=== PATIENT | male | born 1985 | race Caucasian/White ===

== ENCOUNTER 2022-05-13 18:49 | Emergency (ER) | payer OTHER, SELFPAY ==
--- NOTE | ~2022-05-13 | XR_ITS ---
EXAMINATION: XR ANKLE, RIGHT CLINICAL INFORMATION: Right ankle pain COMPARISON: None TECHNIQUE: AP, lateral, and mortise views of the right ankle. FINDINGS: The bones are normal. No fracture. Alignment is anatomic. Joint spaces are maintained. No joint effusion. Soft tissue swelling overlying the lateral malleolus. XR/XR ankle RT min 3V IMPRESSION: Soft tissue swelling overlying the lateral malleolus.
--- NOTE | 2022-05-13 18:54 | ED.EXTPRO ---
HPI - Extremity Problem General Chief complaint: Extremity Injury, Lower Stated complaint: R ANKLE PAIN S/P ROLLING W/FALL WHILE WORKING Time Seen by Provider: 05/13/22 18:59 Source: patient and EMS Mode of arrival: EMS Limitations: no limitations History of Present Illness HPI Narrative: This is a 37-year-old male no significant medical history presenting with excruciating 10/10 right ankle pain, patient tells me he sustained a work related injury he works for [employer] was stepping out of the [employer] truck and rolled his ankle out words, immediately started experiencing severe 10/10 pain worse with movement and weight-bearing better at rest. Patient tells me this is the worst pain he has ever had. Ambulance gave him 100 mcg of fentanyl just prior to arrival. Patient denies numbness or tingling. No previous issues with right ankle. No history of osteoporosis. He did not fall, there was no head strike, no other injuries reported. Related Data Allergies Allergy/AdvReac Type Severity Reaction Status Date / Time SEAFOOD Allergy Unknown SWELLING/DIFFICULTY Uncoded 05/13/22 19:17 BREATHING Review of Systems Review of Systems: Constitutional : No Weight loss, No Fever, No Chills, No Fatigue, No Malaise ENT/Mouth : No sore throat, No Rhinorrhea Eyes: No Eye Pain, No Swelling, No Redness Cardiovascular : No Chest Pain, No SOB, No Dyspnea on Exertion, No Orthopnea, No Edema, No Palpitations Respiratory : No Cough, No Sputum, No Wheezing Gastrointestinal : No Nausea, No Vomiting, No Diarrhea, No Constipation, No abdominal Pain, No Hematochezia, No Melena Genitourinary : No Dysuria, No Urinary Frequency, No Hematuria, Musculoskeletal : + joint pain, No Myalgias, + Joint Swelling Skin : No Skin Lesions, No rash Neuro : No Weakness, No Numbness, No Dizziness, No Headache Psych : No Anxiety/Panic, No Depression All other systems reviewed and are negative Yes all other systems are reviewed and are negative [facility], [facility] Past Medical History Attestation statement: The following information was validated with the patient. Source: old records reviewed and nursing notes reviewed Physical Exam Vital Signs: Vital Signs: Last Vital Signs Temp 98 F 05/13/22 19:18 Pulse 93 05/13/22 19:18 Resp 20 05/13/22 19:18 BP 138/78 05/13/22 19:18 Pulse Ox 100 05/13/22 19:18 O2 Del Method 05/13/22 19:18 BMI result Body Mass Index 27.0 vss Appearance: Alert.? Oriented X3.? No acute distress.? Head: Normocephalic, atraumatic, no step-offs or deformities Eyes: Pupils equal, round and reactive to light.? ENT: Pharynx normal.? Neck: Normal inspection.? Neck supple.? CVS: Normal heart rate and rhythm.? Pulses normal.? Respiratory: No respiratory distress.? Breath sounds normal.? Abdomen: Soft and nontender.? Skin: Skin warm and dry.? Normal skin color.? Normal skin turgor.? Extremities: No lower extremity edema.? No calf ttp. 5/5 strength to bilateral upper and lower extremities + limited range of motion to right ankle secondary to pain. Normal left ankle. 2+ dorsalis pedis, anterior tibialis, posterior tibialis pulses equal bilateral. Formal sensation to lower extremities. Capillary refill less than 2 seconds. To bilateral lower extremity digits. There is significant swelling noted to the lateral aspect of right ankle. Back: No midline tenderness, no C-spine tenderness, full range of motion, no CVA tenderness bilaterally Neuro: Oriented X 3.? No motor deficit.? No sensory deficit. CN 2-12 intact Course Reevaluation(s) Reevaluation #1: Soft tissue swelling overlying the R. lateral malleolus , no fx or dislocation. Patient will be placed in an air cast and given crutches. Will have him follow up with orthopedics. Educated patient on diagnosis and treatment plan, answered all question, patient verbalizes understanding. At this time patient will be discharged home, advised to return with new or worsening symptoms. Educated on worrisome signs and symptoms and when to return. At this time I feel comfortable discharge home. Time: 19:29 Medical Decision Making Medical Decision Making [facility] Narrative: 1855 37-year-old male presents with work related injury complaining of right ankle pain status post rolling it while stepping out of the [employer] vehicle. Physical exam significant for No lower extremity edema.? No calf ttp. 5/5 strength to bilateral upper and lower extremities + limited range of motion to right ankle secondary to pain. Normal left ankle. 2+ dorsalis pedis, anterior tibialis, posterior tibialis pulses equal bilateral. Formal sensation to lower extremities. Capillary refill less than 2 seconds. To bilateral lower extremity digits. There is significant swelling noted to the lateral aspect of right ankle. No foot drop bilaterally. Concerns for possible fracture dislocation. Unlikely neurovascular compromise. Plan at this time is to obtain imaging the right ankle. Will hold on pain medicine as patient did just receive 100 mcg of fentanyl. Critical Care Time Critical Care Time Critical Care Time: No Discharge Plan Discharge Clinical Impression: Ankle sprain and strain, Work related injury Patient Disposition: Home, Self-Care Instructions: Ankle Sprain (ED), Crutch Instructions (ED), R.I.C.E. Treatment (ED) Additional Instructions: Take your medications as prescribed. If you were prescribed antibiotics today, it is important that you take your medication to their entirety, do not skip any doses, do not finish them early. Follow-up with your primary care provider this week. Follow-up with orthopedics if pain persists. Your x-ray showed soft tissue swelling overlying the lateral malleolus consistent with an ankle sprain/strain. There is no signs of fractures or dislocations. If pain persist you may require an MRI to evaluate ligaments and tendons. Return to the emergency department with new or worsening symptoms. Such as fevers, chills, chest pain, shortness of breath, nausea, vomiting, dizziness, headache, vision changes, lethargy, numbness, tingling, footdrop inability to bear weight. In case of emergency call 911 Can take ibuprofen every 6 hours, Tylenol hours as needed pain or discomfort Ice, compress and elevate extremity. Follow up with the work connection as this was a work related injury XR/XR ankle RT min 3V IMPRESSION: Soft tissue swelling overlying the lateral malleolus. Referrals: [facility] [place] [facility] [Provider Group] - 2 weeks Stand Alone Forms: Work/School Release
[2022-05-13 19:18] VITALS: BP 128/94; BP 138/78; PULSE 93; PULSE 98; RESP 20; TEMP 36.6; O2SAT 100; O2SAT 98; BMI 27.0
== END 2022-05-13 21:05 | disposition home or self-care (01) ==
PROVIDERS: Emergency Provider Emergency Medicine
DX: S93.401A Sprain of unspecified ligament of right ankle, initial encounter (principal); S96.911A Strain of unspecified muscle and tendon at ankle and foot level, right foot, initial encounter; X50.1XXA Overexertion from prolonged static or awkward postures, initial encounter; Y93.89 Activity, other specified; Y92.812 Truck as the place of occurrence of the external cause; Y99.0 Civilian activity done for income or pay
CPT/HCPCS: 73610; 99282; 99283

== ENCOUNTER → 2022-05-27 10:19 | Outpatient (BNVA) | payer OTHER, MEDICAID, SELFPAY | PROVIDERS: PCP Student in an Organized Health Care Education/Training Program; Visit Provider Physician Assistant | DX: S93.401A Sprain of unspecified ligament of right ankle, initial encounter (principal) | CPT/HCPCS: 99202 ==

== ENCOUNTER → 2022-06-21 15:19 | Outpatient (BNVA) | payer OTHER, SELFPAY | PROVIDERS: Visit Provider Physician Assistant | DX: S93.401A Sprain of unspecified ligament of right ankle, initial encounter (principal) | CPT/HCPCS: 99212 ==

== ENCOUNTER 2022-07-29 12:00 | Outpatient (RCR) | payer OTHER, SELFPAY ==
--- NOTE | 2022-06-15 11:52 | MHC.PT.EP ---
[facility] [place] Office [place] Office [place] Office [address] August Calixto [address] [phone] F: [phone] F: [phone] F: [phone] F: [phone] Physical Therapy Plan of Care Date of Evaluation: Date of Surgery: N/A Diagnosis: right ankle sprain (RC) Assessment: pt is a 37 y/o male presenting to physical therapy w/ referring diagnosis of right ankle sprain. Impairments include pain, decreased range of motion, decreased strength, impaired functional mobility, impaired postural awareness, and altered ambulation mechanics. pt is a good candidate for skilled PT due to age, potential remediation of impairments, typyical disease/condition progression and prognosis, comorbidities, and motivation. pt would benefit from skilled PT intervention to provide a tailored strengthening and stretching exercise program, functional training, gait training, postural re-training, neuromuscular re-education, modalities as needed for pain, equipment safety demonstration. Frequency and Duration: The patient will be seen 2x/wk for 4 wks Short Term Goals: pt will be I w/ HEP to promote self-management of condition. pt will improve R ankle DF to neutral to normalize gait pattern on even ground. pt will participate in 6MWT within next two sessions to determine Folder Machine Operator Goals: pt will improve R PF strength to promote ease in ascending/descending stairs. pt will demonstrate reciprocal pattern ascending/descending stairs to promote ease in accessing primary living spaces. pt will demonstrate heel strike gait pattern on even ground Treatment Plan: Modalities to reduce pain, spasms and effusion. Manual therapy to restore motion and function. Therapeutic exercise to improve strength and flexibility. Neuromuscular re-education for posture and balance. Therapeutic activities to return to functional activities of daily living. Electronically signed by: Angelina Godfrey PT, DPT Please sign and return to therapist. Thank you for your referral.
--- NOTE | 2022-06-15 11:58 | MHC.PT.EP ---
[facility] [place] Office [place] Office [place] Office [address] August Calixto [address] [phone] F: [phone] F: [phone] F: [phone] F: [phone] Physical Therapy Plan of Care Date of Evaluation: Date of Surgery: N/A Diagnosis: right ankle sprain (RC) Assessment: pt is a 37 y/o male presenting to physical therapy w/ referring diagnosis of right ankle sprain. Impairments include pain, decreased range of motion, decreased strength, impaired functional mobility, impaired postural awareness, and altered ambulation mechanics. pt is a good candidate for skilled PT due to age, potential remediation of impairments, typyical disease/condition progression and prognosis, comorbidities, and motivation. pt would benefit from skilled PT intervention to provide a tailored strengthening and stretching exercise program, functional training, gait training, postural re-training, neuromuscular re-education, modalities as needed for pain, equipment safety demonstration. Frequency and Duration: The patient will be seen 2x/wk for 4 wks Short Term Goals: pt will be I w/ HEP to promote self-management of condition. pt will improve R ankle DF to neutral to normalize gait pattern on even ground. pt will participate in 6MWT within next two sessions to determine [employer] Automatic Goals: pt will improve R PF strength to promote ease in ascending/descending stairs. pt will demonstrate reciprocal pattern ascending/descending stairs to promote ease in accessing primary living spaces. pt will demonstrate heel strike gait pattern on even ground Treatment Plan: Modalities to reduce pain, spasms and effusion. Manual therapy to restore motion and function. Therapeutic exercise to improve strength and flexibility. Neuromuscular re-education for posture and balance. Therapeutic activities to return to functional activities of daily living. Electronically signed by: Angelina Godfrey PT, DPT Please sign and return to therapist. Thank you for your referral.
--- NOTE | 2022-07-29 14:35 | MHC.PT.DC ---
[facility] [place] Office [place] Office [place] Office [address] August Calixto [address] [phone] F: [phone] F: [phone] F: [phone] F: [phone] Physical Therapy Discharge Report Diagnosis: right ankle sprain (RC) Date of Surgery: N/A Date of Evaluation: 06/15/22 Date of Discharge: 07/29/22 Treatments to Date: 11 Cancellations to Date: 0 No Shows to Date: 0 Discharge Status: Achieved Goals Improved Function Independent with HEP Discharge Summary: Per last treatment note on 07/29/22: Pt independent w/HEP Pt Met all Goals. Electronically signed by: Angelina Godfrey PT, DPT Please sign and return to therapist. Thank you for your referral.
== END 2022-07-29 14:36 | disposition home or self-care (01) ==
LOC: HO.PT 12:00
PROVIDERS: PCP Registered Nurse; Visit Provider Physician Assistant
DX: S93.401D Sprain of unspecified ligament of right ankle, subsequent encounter (principal)
CPT/HCPCS: 97110; 97112; 97116; 97140; 97161; 97164

== ENCOUNTER → 2022-08-02 14:29 | Outpatient (BNVA) | payer OTHER, SELFPAY | PROVIDERS: Visit Provider Physician Assistant | DX: S93.401D Sprain of unspecified ligament of right ankle, subsequent encounter (principal) | CPT/HCPCS: 99212 ==